=== PATIENT | female | born 1980 | race Caucasian/White ===

== ENCOUNTER 2017-10-04 16:11 | Emergency (ER) | payer MEDICARE, MEDICAID ==
[~2017-10-04] VITALS: Ht 165.1 cm; Wt 114.5 kg
[~2017-10-04 16:11] MED LIST: ALBU8.5H8 INH; AZIT250T PO; BENZ-16 PO; BUPR150T27 PO; CHRO1TAB7 PO; CLON-527 PO; FLUV50TA3 PO; LAMO200T PO; OMEP-50 PO; ONDA4TAB12 PO; PRED5TAB PO; PROM25TA14 PO; TRAZ-143 PO
[2017-10-04] MEDS ORDERED: CYCL-1 PO (18:54)
[2017-10-04] MEDS ORDERED: ketorolac trometh inj. 60 MG/2 ML VIAL IM ONE (18:55)
[2017-10-04 19:21] VITALS: BP 136/90
== END 2017-10-04 19:23 | disposition home or self-care (01) ==
LOC: ER 16:11
DX: M54.2 Cervicalgia (principal); G43.909 Migraine, unspecified, not intractable, without status migrainosus; I10 Essential (primary) hypertension; J45.909 Unspecified asthma, uncomplicated; G89.29 Other chronic pain; Z88.8 Allergy status to other drugs, medicaments and biological substances; Z79.899 Other long term (current) drug therapy
CPT/HCPCS: 96372; 99283; J1885

== ENCOUNTER 2018-02-01 10:48 | Emergency (ER) | payer MEDICARE, MEDICAID ==
[~2018-02-01] VITALS: Ht 170.2 cm; Wt 111.0 kg
[~2018-02-01 10:48] MED LIST changes: +CYCL-1 PO; -TRAZ-143 PO; +TRAZ-218 PO
[2018-02-01 11:01] VITALS: BP 146/95
[2018-02-01] MEDS ORDERED: PRED20TA PO (11:19)
[2018-02-01] MEDS ORDERED: AZIT250T PO (11:19)
[2018-02-01] MEDS ORDERED: ALBU6.7H INH (11:19)
== END 2018-02-01 11:29 | disposition home or self-care (01) ==
LOC: ER 10:48
DX: J20.9 Acute bronchitis, unspecified (principal); I10 Essential (primary) hypertension; G89.29 Other chronic pain; G43.909 Migraine, unspecified, not intractable, without status migrainosus; Z98.51 Tubal ligation status; Z87.891 Personal history of nicotine dependence; Z88.1 Allergy status to other antibiotic agents; Z79.2 Long term (current) use of antibiotics; Z79.899 Other long term (current) drug therapy
CPT/HCPCS: 99283

== ENCOUNTER 2018-04-24 10:11 | Emergency (ER) | payer MEDICARE, MEDICAID ==
[~2018-04-24] VITALS: Ht 165.1 cm; Wt 104.5 kg
[~2018-04-24 10:11] MED LIST changes: +ALBU6.7H INH
[2018-04-24 10:24] VITALS: BP 162/81
[2018-04-24] MEDS ORDERED: CLIN300C85 PO (10:45)
[2018-04-24] MEDS ORDERED: HYDROcodone/acetaminophen 10/325mg tab PO ONE (11:00)
== END 2018-04-24 10:56 | disposition home or self-care (01) ==
LOC: ER 10:11
DX: K02.9 Dental caries, unspecified (principal); G43.909 Migraine, unspecified, not intractable, without status migrainosus; I10 Essential (primary) hypertension; J45.909 Unspecified asthma, uncomplicated; G89.29 Other chronic pain; Z98.51 Tubal ligation status; Z88.1 Allergy status to other antibiotic agents; Z79.2 Long term (current) use of antibiotics; Z79.899 Other long term (current) drug therapy
CPT/HCPCS: 99283

== ENCOUNTER 2018-07-02 12:48 | Emergency (ER) | payer MEDICARE, MEDICAID ==
[~2018-07-02] VITALS: Ht 165.1 cm; Wt 116.0 kg
[~2018-07-02 12:48] MED LIST changes: +CLIN-96 PO
[2018-07-02 13:11] VITALS: BP 146/117
[2018-07-02] MEDS ORDERED: clindamycin 150mg capsule PO ONE (14:35)
[2018-07-02] MEDS ORDERED: ketorolac trometh. 30mg/ml inj. IM ONE (14:35)
[2018-07-02] MEDS ORDERED: CLIN-117 PO (14:38)
== END 2018-07-02 15:06 | disposition home or self-care (01) ==
LOC: ER 12:49
DX: K08.89 Other specified disorders of teeth and supporting structures (principal); R51 Headache; I10 Essential (primary) hypertension; J45.909 Unspecified asthma, uncomplicated; G89.29 Other chronic pain; Z98.51 Tubal ligation status; Z98.890 Other specified postprocedural states; Z88.0 Allergy status to penicillin; Z79.1 Long term (current) use of non-steroidal anti-inflammatories (NSAID); Z79.899 Other long term (current) drug therapy
CPT/HCPCS: 96372; 99283; J1885

== ENCOUNTER 2018-12-13 23:40 | Emergency (ER) | payer MEDICARE, MEDICAID ==
[~2018-12-13] VITALS: Ht 165.1 cm; Wt 99.3 kg
[~2018-12-13 23:40] MED LIST changes: -ALBU6.7H INH; +ALBU6.7H9 INH; -TRAZ-218 PO; +TRAZ-251 PO
[2018-12-13 23:44] VITALS: BP 196/80
[2018-12-14] MEDS ORDERED: acetaminophen 325mg tablet PO ONE (00:25)
[2018-12-14 00:41] LABS: EOSINOPHILS # (AUTO) 0.2 X10'3 (0-0.9); MEAN PLATELET VOLUME 8.6 FL (7.4-10.4)
[2018-12-14 00:43] LABS: BASOPHILS % (AUTO) 0.3 % (0-1); EOSINOPHILS % (AUTO) 1.8 % (0-6); HEMATOCRIT 40.7 % (35.0-45.0); LYMPHOCYTES # (AUTO) 2.8 X10'3 (1.1-4.8); LYMPHOCYTES % (AUTO) 30.1 % (21-51); MEAN CORPUSCULAR HEMOGLOBIN 27.6 PG (27.0-31.0); MEAN CORPUSCULAR HGB CONC 34.4 g/dL (33.0-36.5); MEAN CORPUSCULAR VOLUME 80.4 FL (78-98); MONOCYTES # (AUTO) 0.8 X10'3 (0-0.9); MONOCYTES % (AUTO) 8.3 % (2-12); NEUTROPHILS # (AUTO) 5.6 X10'3 (1.8-7.7); NEUTROPHILS % (AUTO) 59.5 % (42-75); RED BLOOD COUNT 5.06 X10'6 (4.20-5.60); RED CELL DISTRIBUTION WIDTH 14.6 % (11.5-14.5); WHITE BLOOD COUNT 9.4 X10'3 (4.5-11.0)
[2018-12-14 00:47] LABS: ALANINE AMINOTRANSFERASE 26 U/L (12-78); ALBUMIN 3.6 G/DL (3.4-5.0); ALBUMIN/GLOBULIN RATIO 1.1 (1.1-1.5); ALKALINE PHOSPHATASE 69 IU/L (46-116); ANION GAP 9 (8-16); ASPARTATE AMINO TRANSFERASE 15 U/L (10-37); BILIRUBIN,TOTAL 0.4 MG/DL (0.1-1.0); BLOOD UREA NITROGEN 19 MG/DL (7-18); BUN/CREATININE RATIO 21.3 (6.6-38.0); CALCIUM 8.5 MG/DL (8.5-10.1); CHLORIDE 107 MMOL/L (99-107); CREATININE 0.89 MG/DL (0.40-0.90); GLUCOSE 128 MG/DL (70-104); POTASSIUM 3.6 MMOL/L (3.5-5.1); SODIUM 141 MMOL/L (135-145); TOTAL CARBON DIOXIDE 24.8 MMOL/L (24-32); eGFR 72 ML/MIN
== END 2018-12-14 00:50 | disposition home or self-care (01) ==
LOC: ER 23:41
DX: N94.6 Dysmenorrhea, unspecified (principal); G43.909 Migraine, unspecified, not intractable, without status migrainosus; I10 Essential (primary) hypertension; J45.909 Unspecified asthma, uncomplicated; G89.29 Other chronic pain; F31.9 Bipolar disorder, unspecified; Z88.1 Allergy status to other antibiotic agents; Z79.2 Long term (current) use of antibiotics; Z79.899 Other long term (current) drug therapy; Z98.890 Other specified postprocedural states; Z98.51 Tubal ligation status
CPT/HCPCS: 36415; 80053; 85025; 99283